=== PATIENT | male | born 1960 ===

== ENCOUNTER 2021-08-14 10:20 | Emergency (ER) | payer BC ==
[~2021-08-14 10:20] MED LIST: Amoxicillin/Clavulanate K 875-125 MG Tab ONE
[2021-08-14] MEDS ORDERED: HYDROmorphone 2 MG/ML SDV ONE (10:46)
[2021-08-14] MEDS ORDERED: cefTRIAXone 1 GM Vial IM ONE (10:48)
[2021-08-14] MEDS ORDERED: cefTRIAXone 1 GM Vial ONE (10:52)
--- NOTE | 2021-08-14 10:55 | EDM.PDOC ---
ED HPI GENERAL MEDICAL PROBLEM - General Stated Complaint: SWOLLEN IN RIGHT KNEE Time Seen by Provider: 08/14/21 10:30 - History of Present Illness INITIAL COMMENTS - FREE TEXT/NARRATIVE: Pt comes to ER with increasing pain and swelling of his Rt knee. He has Total knee replacement in [place] [address] Tsang. He was discharged yesterday and after getting home his symptoms started getting worse. Rates his pain at > 9-10. He has been taking both Oxy and Tramadol as directed. - Related Data Allergies Allergy/AdvReac Type Severity Reaction Status Date / Time No Known Allergies Allergy Verified 01/05/15 13:11 Home Meds: Home Meds Glimepiride 4 mg PO BID 01/16/15 [History] Lisinopril 5 mg PO DAILY 01/16/15 [History] Pioglitazone HCl [Actos] 30 mg PO DAILY 01/16/15 [History] Simvastatin 20 mg PO DAILY 01/16/15 [History] sitaGLIPtin Phos/Metformin HCl [Janumet 50-1,000 MG] 2 each PO BID 01/16/15 [History] ED ROS GENERAL - Review of Systems Review Of Systems: Comprehensive ROS is negative, except as noted in HPI. Musculoskeletal: Reports: Other (Increase in Rt knee pain and swelling with some redness Post op.) ED EXAM, GENERAL - Physical Exam Exam: See Below Extremities: Other (His Rt knee has a surgical dressing on the anterior aspect. The knee is swolled with bruising on the lateral side. He also has a macular rash radiating out 1-2 cm on both sides but more on the medial side. Rash is warm to touch.) Course - Orders/Labs/Meds Meds: Medications Discontinued Medications Generic Name Dose Route Start Last Admin Trade Name Danielle PRN Reason Stop Dose Admin Ceftriaxone Sodium Confirm 08/14/21 10:52 Ceftriaxone 1 Gm Vial Administered 08/14/21 10:53 Dose 1 gm .ROUTE .STK-MED ONE Hydromorphone HCl Confirm 08/14/21 10:46 Hydromorphone 2 Mg/Ml Sdv Administered 08/14/21 10:47 Dose 2 mg .ROUTE .STK-MED ONE - Re-Assessments/Exams Free Text/Narrative Re-Assessment/Exam: 08/14/21 10:58 Pt was given Dilaudid 1 mg IM and Rocephin 1 GM IM. He will be started on Augmentin as well. Continue pain meds as directed. We marked the outside border of the rash with a pen. His also took pictures and will continue to do so at home if there are any changes. They do not have a way to contact the Ortho dept today she tells me, the office is closed. I called [employer] one call and left a message to call me back so I can consult with Ortho contracting officer. 08/14/21 11:05 Departure - Departure Time of Disposition: 10:50 Disposition: Home, Self-Care 01 Condition: Good Clinical Impression: Postoperative pain of right knee - Discharge Information *PRESCRIPTION DRUG MONITORING PROGRAM REVIEWED*: Yes *COPY OF PRESCRIPTION DRUG MONITORING REPORT IN PATIENT LUZMARIA: Yes Referrals: Dante Collins MD [Primary Care Provider] -
[2021-08-14] MEDS ORDERED: HYDROmorphone 2 MG/ML SDV IM ONE (14:58)
== END 2021-08-14 10:54 | disposition home or self-care (01) ==
LOC: LB.ED 10:20
DX: G89.18 Other acute postprocedural pain (principal); M25.561 Pain in right knee; Z79.899 Other long term (current) drug therapy
CPT/HCPCS: 96372; 99283; A9270-GY; J0696; J1170